=== PATIENT | female | born 1970 | race Asian ===

== ENCOUNTER 2021-01-27 09:07 | Emergency (ER) | payer SELFPAY ==
[~2021-01-27] VITALS: Ht 154.9 cm; Wt 49.0 kg
[2021-01-27 09:14] VITALS: BP 139/86
[2021-01-27] MEDS ORDERED: SODIUM CHLORIDE 0.9% 1,000 ML IV NR (13:00)
[2021-01-27] MEDS ORDERED: LORAZEPAM 1MG TABLET PO NR (13:00)
== END 2021-01-27 13:59 | disposition left against medical advice (07) ==
LOC: ER 09:07
DX: I10 Essential (primary) hypertension (principal); T63.311A Toxic effect of venom of black widow spider, accidental (unintentional), initial encounter; Y92.89 Other specified places as the place of occurrence of the external cause; Z98.890 Other specified postprocedural states; Z88.2 Allergy status to sulfonamides
CPT/HCPCS: 99281